=== PATIENT | female | born 1950 | race African-American/Black ===

== ENCOUNTER 2017-11-08 13:50 | Emergency (ER) | payer OTHER, MEDICAID ==
[~2017-11-08] VITALS: Ht 162.6 cm; Wt 115.0 kg
[2017-11-08 13:56] VITALS: BP 164/80; PULSE 86; RESP 19; TEMP 97.7; O2SAT 98
[2017-11-08] MEDS ORDERED: SODIUM CHLORIDE 0.9% FLUSH 10 ML FLUSH IVF PRN (14:30)
[2017-11-08] MEDS ORDERED: AUGM500T7 PO (14:32)
[2017-11-08] MEDS ORDERED: METO100T PO (14:36)
[2017-11-08] MEDS ORDERED: METF500T PO (14:36)
[2017-11-08] MEDS ORDERED: GLIM4TAB PO (14:36)
[2017-11-08] MEDS ORDERED: ATOR80TA45 PO (14:36)
[2017-11-08] MEDS ORDERED: DICL75TA PO (14:36)
[2017-11-08] MEDS ORDERED: POTA10TA2 PO (14:36)
[2017-11-08] MEDS ORDERED: HYDR200T3 PO (14:36)
[2017-11-08] MEDS ORDERED: AMLO10 PO (14:36)
[2017-11-08] MEDS ORDERED: FURO40TA PO (14:36)
[2017-11-08] MEDS ORDERED: SITA1TAB2 PO (14:36)
--- NOTE | 2017-11-08 14:41 | PD ---
HPI Chief Complaint: Neuro Symptoms/ Deficits Time Seen by Provider: 14:29 Travel History International Travel<30 days: No Contact w/Intl Traveler<30days: No Traveled to known affect area: No History of Present Illness HPI 67-year-old female patient with history of COPD, diabetes, previous history of vertigo, presents to the ER today because she states that she is having dizziness starting today when she was sitting, felt like the room was moving, felt like her previous vertigo but she stated was also different. She states that it took her a few minutes to try to find some words, but denies any numbness or weakness. She states that it gets worse when she moves her head. She denies any chest pains, trouble breathing, or any other symptoms. Modifying Factors: None Associated Signs & Symptoms: Episode of dizziness, vertigo, word finding difficulty Risk Factors: History of vertigo PFSH Past Medical History Asthma: Yes Cardiovascular Problems: Yes (HTN) High Cholesterol: Yes Congestive Heart Failure: Yes COPD: Yes Diabetes: Yes Patient Takes Glucophage: Yes Headaches: Yes Hypertension: Yes Respiratory: Yes (COPD ON OXYGEN AT HOME NEEDED) Tetanus Vaccination: > 5 Years Influenza Vaccination: Yes ?: Not Past Surgical History Surgical History: No Previous Surgery Social History Alcohol Use: No Tobacco Use: No Substance Use: No Allergies-Medications (Allergen,Severity, Reaction): Coded Allergies: Penicillins (Verified Allergy, Intermediate, 11/08/17) acetaminophen (Verified Allergy, Intermediate, 11/08/17) amoxicillin (Verified Allergy, Intermediate, 11/08/17) oxycodone (Verified Allergy, Intermediate, 11/08/17) Reported Meds & Prescriptions Reported Meds & Active Scripts Active Reported Potassium Chloride ER (Potassium Chloride) 10 Meq Tab 10 Meq PO DAILY Furosemide 40 Mg Tab 40 Mg PO DAILY Norvasc (Amlodipine Besylate) 10 Mg Tab 10 Mg PO DAILY Metoprolol Tartrate 100 Mg Tab 100 Mg PO DAILY Glimepiride 4 Mg Tab 4 Mg PO BIDAC Januvia (Sitagliptin Phosphate) 100 Mg Tab 100 Mg PO DAILY Metformin (Metformin HCl) 500 Mg Tab 500 Mg PO BIDPC Atorvastatin (Atorvastatin Calcium) 80 Mg Tab 80 Mg PO HS Hydroxychloroquine (Hydroxychloroquine Sulfate) 200 Mg Tab 200 Mg PO DAILY Takw with food Diclofenac Sodium DR (Diclofenac Sodium) 75 Mg Tabdr 75 Mg PO DAILY Review of Systems Except as stated in HPI: all other systems reviewed are Neg Physical Exam Narrative GENERAL: Well-developed obese, elderly -[place] female patient currently and mild distress. Awake and oriented 3. SKIN: Focused skin assessment warm/dry. HEAD: Atraumatic. Normocephalic. EYES: Pupils equal and round. No scleral icterus. No injection or drainage. ENT: No nasal bleeding or discharge. Mucous membranes pink and moist. NECK: Trachea midline. No JVD. CARDIOVASCULAR: Regular rate and rhythm. No murmur appreciated. RESPIRATORY: No accessory muscle use. Clear to auscultation. Breath sounds equal bilaterally. GASTROINTESTINAL: Abdomen soft, non-tender, nondistended. Hepatic and splenic margins not palpable. MUSCULOSKELETAL: No obvious deformities. No clubbing. No cyanosis. No edema. NEUROLOGICAL: Awake and alert. No obvious cranial nerve deficits. Motor grossly within normal limits. Normal speech. No pronator drift. Mild lateral nystagmus notable. PSYCHIATRIC: Appropriate mood and affect; insight and judgment normal. Data Data Last Documented VS Vital Signs Date Time Temp Pulse Resp B/P (MAP) Pulse Ox O2 Delivery O2 Flow Rate FiO2 11/08/17 14:43 82 18 127/69 (88) 100 Room Air 11/08/17 13:56 97.7 Orders Orders Electrocardiogram (11/08/17 14:30) Complete Blood Count With Diff (11/08/17 14:30) Comprehensive Metabolic Panel (11/08/17 14:30) Magnesium (Mg) (11/08/17 14:30) Ckmb (Isoenzyme) Profile (11/08/17 14:30) Troponin I (11/08/17 14:30) Act Partial Throm Time (Ptt) (11/08/17 14:30) Prothrombin Time / Inr (Pt) (11/08/17 14:30) Urinalysis - C+S If Indicated (11/08/17 14:30) Ct Brain W/O Iv Contrast(Rout) (11/08/17 14:30) Ecg Monitoring (11/08/17 14:30) Iv Access Insert/Monitor (11/08/17 14:30) Oximetry (11/08/17 14:30) Sodium Chloride 0.9% Flush (Ns Flush) (11/08/17 14:30) Meclizine (Antivert) (11/08/17 14:45) CKMB (11/08/17 14:40) CKMB% (11/08/17 14:40) Ed Discharge Order (11/08/17 18:22) Labs Laboratory Tests Test 11/08/17 14:40 11/08/17 17:50 White Blood Count 4.1 TH/MM3 Red Blood Count 4.92 MIL/MM3 Hemoglobin 13.3 GM/DL Hematocrit 41.0 % Mean Corpuscular Volume 83.4 FL Mean Corpuscular Hemoglobin 27.0 PG Mean Corpuscular Hemoglobin Concent 32.3 % Red Cell Distribution Width 14.0 % Platelet Count 192 TH/MM3 Mean Platelet Volume 9.6 FL Neutrophils (%) (Auto) 45.8 % Lymphocytes (%) (Auto) 42.4 % Monocytes (%) (Auto) 6.4 % Eosinophils (%) (Auto) 4.3 % Basophils (%) (Auto) 1.1 % Neutrophils # (Auto) 1.9 TH/MM3 Lymphocytes # (Auto) 1.7 TH/MM3 Monocytes # (Auto) 0.3 TH/MM3 Eosinophils # (Auto) 0.2 TH/MM3 Basophils # (Auto) 0.0 TH/MM3 CBC Comment DIFF FINAL Differential Comment Prothrombin Time 9.7 SEC Prothromb Time International Ratio 1.0 RATIO Activated Partial Thromboplast Time 24.5 SEC Blood Urea Nitrogen 12 MG/DL Creatinine 0.95 MG/DL Random Glucose 87 MG/DL Total Protein 7.9 GM/DL Albumin 4.1 GM/DL Calcium Level 8.9 MG/DL Magnesium Level 2.2 MG/DL Alkaline Phosphatase 99 U/L Aspartate Amino Transf (AST/SGOT) 37 U/L Alanine Aminotransferase (ALT/SGPT) 57 U/L Total Bilirubin 0.3 MG/DL Sodium Level 144 MEQ/L Potassium Level 4.3 MEQ/L Chloride Level 107 MEQ/L Carbon Dioxide Level 28.4 MEQ/L Anion Gap 9 MEQ/L Estimat Glomerular Filtration Rate 58 ML/MIN Total Creatine Kinase 254 U/L Creatine Kinase MB 2.1 NG/ML Creatine Kinase MB % 0.8 % Troponin I LESS THAN 0.02 NG/ML Urine Color YELLOW Urine Turbidity CLEAR Urine pH 5.5 Urine Specific [place] 1.018 Urine Protein NEG mg/dL Urine Glucose (UA) NEG mg/dL Urine Ketones NEG mg/dL Urine Occult Blood NEG Urine Nitrite NEG Urine Bilirubin NEG Urine Urobilinogen LESS THAN 2.0 MG/DL Urine Leukocyte Esterase LARGE Urine RBC 3 /hpf Urine WBC 4 /hpf Urine Squamous Epithelial Cells 4 /hpf Urine Transitional Epithelial Cells 1 /hpf Urine Hyaline Casts 6 /lpf Urine Mucus FEW /lpf Microscopic Urinalysis Comment CULT NOT INDICATED MDM Medical Decision Making Medical Screen Exam Complete: Yes Emergency Medical Condition: Yes Medical Record Reviewed: Yes Interpretation(s) EKG shows NSR, no ST elevation or depression, and no arrhythmias. No significant T-wave inversions. Laboratory Tests Test 11/08/17 14:40 11/08/17 17:50 Eosinophils (%) (Auto) 4.3 % (0.0-4.0) Prothrombin Time 9.7 SEC (9.8-11.6) Alanine Aminotransferase (ALT/SGPT) 57 U/L (10-53) Estimat Glomerular Filtration Rate 58 ML/MIN (>89) Total Creatine Kinase 254 U/L (26-192) Troponin I LESS THAN 0.02 NG/ML Urine Leukocyte Esterase LARGE (NEG) Urine Mucus FEW /lpf (OCC) Last [address] 11/08/17 1430 Signed Impressions: CONCLUSION: 1. No acute intracranial abnormalities. Differential Diagnosis Dehydration versus orthostasis versus acute intracranial processes versus vertigo Narrative Course CT of the brain is negative for any acute intracranial processes. EKG did not show any signs of dysrhythmias. Patient has no focal neurological deficits. She was given meclizine in the ER. On reevaluation at 6 PM, she is sitting up, feeling well, talking to her friend and doing well otherwise, vital signs are stable. My plan at this point would be to release her with follow-up to primary care doctor. Return for worsening in symptoms as needed. The plan has been discussed with her and she states understanding. Diagnosis Primary Impression: Dizziness Med/Other Pt SpecificInfo: Prescription(s) given Scripts Meclizine (Meclizine) 25 Mg Tab 25 MG PO DIRECTED Y for VERTIGO, #20 TAB 0 Refills Prov: Nick Vizcarra MD 11/08/17 Disposition: 01 DISCHARGE HOME Condition: Stable Nick Vizcarra MD November 08, 2017 14:41
[2017-11-08 14:43] VITALS: BP 127/69; PULSE 82; RESP 18; O2SAT 100
[2017-11-08] MEDS ORDERED: MECLIZINE HCL 25 MG TAB PO ONE (14:45)
[2017-11-08 14:56] LABS: AUTOMATED NEUTROPHIL # 1.9 TH/MM3 (1.8-7.7); BASOPHIL % 1.1 % (0.0-2.0); EOSINOPHIL # 0.2 TH/MM3 (0-0.4); EOSINOPHIL % 4.3 % (0.0-4.0); HEMOGLOBIN 13.3 GM/DL (11.6-15.3); LYMPH % 42.4 % (9.0-44.0); LYMPHOCYTE # 1.7 TH/MM3 (1.0-4.8); MEAN CELL VOLUME 83.4 FL (80.0-100.0); MEAN CORPUSCULAR HGB CONC 32.3 % (32.0-36.0); MEAN PLATELET VOLUME 9.6 FL (7.0-11.0); MONO % 6.4 % (0.0-8.0); MONOCYTE # 0.3 TH/MM3 (0-0.9); NEUT % 45.8 % (16.0-70.0); PLATELET COUNT 192 TH/MM3 (150-450); RED BLOOD COUNT 4.92 MIL/MM3 (4.00-5.30); WHITE BLOOD COUNT 4.1 TH/MM3 (4.0-11.0)
[2017-11-08 15:08] LABS: PROTHROMBIN TIME - PATIENT 9.7 SEC (9.8-11.6)
[2017-11-08 15:15] LABS: ALKALINE PHOSPHATASE 99 U/L (45-117); TOTAL BILIRUBIN ADULT 0.3 MG/DL (0.2-1.0); TOTAL PROTEIN 7.9 GM/DL (6.4-8.2); TROPONIN I LESS THAN 0.02 NG/ML (0.02-0.05)
[2017-11-08 15:20] LABS: ALBUMIN 4.1 GM/DL (3.4-5.0); ALT (GPT) 57 U/L (10-53); AST (GOT) 37 U/L (15-37); BICARBONATE 28.4 MEQ/L (21.0-32.0); BLOOD UREA NITROGEN 12 MG/DL (7-18); CALCIUM 8.9 MG/DL (8.5-10.1); CHLORIDE 107 MEQ/L (98-107); CREATININE 0.95 MG/DL (0.50-1.00); GLOMERULAR FILTRATION RATE 58 ML/MIN (>89); GLUCOSE,RANDOM 87 MG/DL (74-106); MAGNESIUM 2.2 MG/DL (1.5-2.5); SODIUM (NA) 144 MEQ/L (136-145)
--- NOTE | 2017-11-08 15:44 | RADRPT ---
EXAM DATE: 11/08/2017 3:41 PM EDT AGE/SEX: 67 years / Female INDICATIONS: Dizziness CLINICAL DATA: This is the patient's initial encounter. Patient reports that signs and symptoms have been present for 1 day and indicates a pain score of 0/10. MEDICAL/SURGICAL HISTORY: Hypertension. Chronic obstructive pulmonary disease. Diabetes. None. RADIATION DOSE: 56.35 CTDI (mGy) COMPARISON: No prior [facility] exams available for comparison. TECHNIQUE: CT of the head without contrast. Using automated exposure control and adjustment of the mA and/or kV according to patient size, radiation dose was kept as low as reasonably achievable to ob tain optimal diagnostic quality images. FINDINGS: Cerebrum: The ventricles are normal for age. No evidence of midline shift, mass lesion, hemorrhage or acute infarction. No extraaxial fluid collections are seen. Posterior Fossa: The cerebellum and brainstem are intact. The 4th ventricle is midline. The cerebe llopontine angle is unremarkable. Extracranial: The visualized portion of the orbits is intact. Skull: The calvaria is intact. No evidence of skull fracture. CONCLUSION: 1. No acute intracranial abnormalities. Electronically signed by: Roshan Davidson MD 11/08/2017 3:43 PM EDT
[2017-11-08 18:06] LABS: BILIRUBIN, URINE NEG (NEG); BLOOD, URINE NEG (NEG); GLUCOSE,URINE NEG (NEG); HYALINE CAST, URINE 6 /lpf (RARE); KETONE, URINE NEG (NEG); MUCUS URINE FEW /lpf (OCC); NITRITE,URINE NEG (NEG); PH, URINE 5.5 (5.0-8.5); SQUAMOUS EPITHELIAL CELL URINE 4 /hpf (0-5); TRANSITIONAL EPI CELLS, URINE 1 /hpf; URINE COLOR YELLOW (YELLW/STRAW); URINE LEUKOCYTE ESTERASE LARGE (NEG)
[2017-11-08] MEDS ORDERED: MECL-62 PO (18:25)
--- NOTE | 2017-11-09 18:05 | EKG ---
Date Performed: 11/08/2017 Time Performed: 15:07:17 PTAGE: 67 years EKG: Sinus rhythm INDETERMINATE AXIS RIGHT BUNDLE BRANCH BLOCK ABNORMAL ECG NO PREVIOUS TRACING DOCTOR: Winnie Culver Interpretating Date/Time 11/09/2017 17:59:15
== END 2017-11-08 19:02 | disposition home or self-care (01) ==
LOC: NEPE 13:50
DX: R42 Dizziness and giddiness (principal); R94.31 Abnormal electrocardiogram [ECG] [EKG]; I50.9 Heart failure, unspecified; E66.9 Obesity, unspecified; I11.0 Hypertensive heart disease with heart failure; E11.9 Type 2 diabetes mellitus without complications; J44.9 Chronic obstructive pulmonary disease, unspecified; Z99.81 Dependence on supplemental oxygen; Z88.5 Allergy status to narcotic agent; Z88.0 Allergy status to penicillin; Z79.84 Long term (current) use of oral hypoglycemic drugs
CPT/HCPCS: 70450; 80053; 81001; 82550; 82552; 83735; 84484; 85025; 85610; 85730; 93005; 99285